=== PATIENT | male | born 1965 | race Caucasian/White ===

== ENCOUNTER 2018-01-13 03:22 | Emergency (ER) | payer OTHER ==
[~2018-01-13] VITALS: Ht 175.3 cm; Wt 88.5 kg
[2018-01-13] MEDS ORDERED: DEXT20TA2 PO (05:09)
--- NOTE | 2018-01-13 05:12 | PHYS DOC ---
Past Medical History Past Medical History: Other Additional Past Medical Histor: ADHD Past Surgical History: Other Additional Past Surgical Histo: BLADDER CA, NASAL, BONE REPLACEMENT RIGHT MIDDLE FINGER Alcohol Use: Occasionally Drug Use: None Adult General Chief Complaint Chief Complaint: BACK PAIN OR INJURY HPI HPI Patient is a 52-year-old male. 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 Since that time he has had pain in his left buttock and tingling going down his left leg. His pain is located focally in his left groin, in the area of his left femoral area. He has not had any hernias. He has been working with a chiropractor, who did some x-rays and told him he had a disc injury/radiculopathy/sciatica, and has been administering laser treatments , although the patient states he has been unable to sleep for the past 3 nights secondary to the pain. He reports generalized numbness of his left leg, has not had any muscle weakness, incontinence, or saddle anesthesia. Has not had any fevers or chills. He denies any definite focal lower back pain. Movement and palpation seems to worsen the patient's symptoms. There are no alleviating factors to his symptoms. Review of Systems Review of Systems Constitutional: Denies fever or chills [] Respiratory: Denies cough or shortness of breath [] Cardiovascular: The patient denies any shortness of breath, chest pain, palpitations, or orthopnea [] GI: Denies abdominal pain, nausea, vomiting, bloody stools or diarrhea [] Musculoskeletal: Denies back pain or joint pain, except as noted in the history of present illness. [] Integument: Denies rash or skin lesions [] Neurologic: Denies headache, focal weakness or sensory changes, except as noted in the history of present illness. [] Current Medications Current Medications Current Medications Medications (Trade) Dose Ordered Sig/Jossy Start Time Stop Time Status Last Admin Dose Admin Diazepam (Valium) 5 mg 1X ONCE 01/13/18 05:30 01/13/18 05:31 DC 01/13/18 05:43 5 MG Oxycodone/ Acetaminophen (Percocet 5/325) 1 tab 1X ONCE 01/13/18 05:30 01/13/18 05:31 DC 01/13/18 05:43 1 TAB Allergies Allergies Allergies Coded Allergies Type Severity Reaction Last Updated Verified No Known Drug Allergies 01/13/18 No Physical Exam Physical Exam PHYSICAL EXAM: CONSTITUTIONAL: Well developed, well nourished HEAD: normocephalic, atraumatic EENT: PERRL, EOMI. Conjunctivae normal color, sclerae non-icteric; moist mucous membranes. NECK: Supple, non-tender; no meningismus. LUNGS: Lungs CTA, breathing even and unlabored. Normal air movement. HEART: Regular rate and rhythm, no murmur CHEST: No deformity; non-tender ABDOMEN: The abdomen is soft, and non-tender, no masses or bruits. EXTREM: Normal ROM; no deformity, no calf tenderness. Normal pulses palpable in all extremities. There is no pedal edema. There is mild tenderness to palpation in the left groin focally, without any definite palpable hernia or mass. SKIN: No rash; no diaphoresis NEURO: Alert; normal speech and cognition; CN's grossly intact; strength grossly intact without focal deficit. Patellar reflexes are 1+ bilaterally. There is no foot drop. Perineal sensation is normal. Pinprick sensation is normal and symmetrical bilaterally. There is no reproducible sensory deficit. BACK: No CVA TTP. There is no reproducible tenderness to palpation to the thoracic or lumbar spine. Leg raise is positive on the left at about 45. It is negative on the right. Current Patient Data Vital Signs Vital Signs Date Time Temp Pulse Resp B/P (MAP) Pulse Ox O2 Delivery O2 Flow Rate FiO2 01/13/18 05:43 20 98 Room Air 01/13/18 04:25 97.8 58 196/99 (131) 97.8 EKG EKG [] Radiology/Procedures Radiology/Procedures [ER physician preliminary lumbar spine and hip x-rays: No acute fracture. There are degenerative changes in the hip and lumbar spine.] Course & Med Decision Making Course & Med Decision Making Pertinent Imaging studies reviewed. (See chart for details) [5:10 AM: The patient is noted to have an elevated blood pressure. He states that his blood pressure is normally normal to slightly elevated but nothing like this. I did discuss importance of close follow-up as an outpatient with his primary care provider, for further blood pressure management and possible treatment. Given the patient's acute pain and in ER visit are not diagnosed with hypertension based on his elevated levels at this time.] 6:05 AM: The patient's condition remained stable. Discussed test results with the patient, the need for orthopedic/spine follow-up, likely an MRI due to persistent pain, and return precautions for development of neurological symptoms. We also discussed medication precautions. Dragon Disclaimer Dragon Disclaimer This electronic medical record was generated, in whole or in part, using a voice recognition dictation system. Departure Departure Impression: Primary Impression: Sciatic leg pain Disposition: HOME, SELF-CARE Condition: STABLE Referrals: HOUSTON CARDONA MD Patient Instructions: Sciatica Additional Instructions: Ibuprofen 400-600 mg every 6 hours may help improve your symptoms. Applying a heating pad to the affected area may help improve your symptoms. The prescribed medications may cause drowsiness-use caution while taking. Scripts Hydrocodone/Apap 5-325 (NORCO 5-325 TABLET) 1 Each Tablet 1-2 TAB PO Q4-6HRS, #30 TAB Prov: JULISA SIMS MD 01/13/18 Cyclobenzaprine Hcl (CYCLOBENZAPRINE HCL) 10 Mg Tablet 1 TAB PO TID PRN for PAIN, #30 TAB Prov: JULISA SIMS MD 01/13/18 JULISA SIMS MD Jan 13, 2018 05:12
[2018-01-13] MEDS ORDERED: diazePAM 5 MG TABLET PO ONE (05:30)
[2018-01-13] MEDS ORDERED: oxyCODONE/APAP 5/325 1 TAB TABLET PO ONE (05:30)
[2018-01-13] MEDS ORDERED: CYCL10TA2 PO (06:06)
[2018-01-13] MEDS ORDERED: HYDR-971 PO (06:06)
[2018-01-13 06:09] VITALS: BP 159/95
--- NOTE | 2018-01-13 07:47 | RAD ---
Portable left hip, 2 views, 01/13/2018: HISTORY: Hip pain, back pain No hip fracture or dislocation is identified. There is moderate narrowing of the hip joint with mild marginal spurring. The periarticular soft tissues are unremarkable. IMPRESSION: 1. Moderate degenerative change of the left hip joint. 2. No acute bony abnormality is detected. Lumbar spine, 3 views, 01/13/2018: HISTORY: Back pain The lumbar vertebral heights are well-maintained. There is moderate disc space narrowing and marginal spurring at multiple levels in the mid and lower lumbar spine. There are moderate degenerative changes involving the facet joints in the lower lumbar spine. No fracture or subluxation is evident. The paraspinous soft tissues are unremarkable. IMPRESSION: 1. Moderate multilevel degenerative change. 2. No acute bony abnormality is detected. Electronically signed by: Brian Kraft MD (01/13/2018 7:44 AM) [facility] [place]
== END 2018-01-13 06:12 | disposition home or self-care (01) ==
LOC: ER 03:22
DX: M54.42 Lumbago with sciatica, left side (principal); F90.9 Attention-deficit hyperactivity disorder, unspecified type
CPT/HCPCS: 72100; 73502; 99284